=== PATIENT | female | born 1960 | race African-American/Black ===

== ENCOUNTER 2024-06-29 08:08 | Emergency (ER) | payer MEDICARE, BC ==
[~2024-06-29] VITALS: Ht 167.6 cm; Wt 100.0 kg
[2024-06-29 08:16] VITALS: O2SAT 99
[2024-06-29] MEDS ORDERED: IBUP-2029 MT (09:07)
[2024-06-29 09:36] VITALS: BP 160/90; PULSE 53; RESP 16; TEMP 36.78072; O2SAT 99
== END 2024-06-29 09:39 | disposition home or self-care (01) ==
LOC: ER 08:08
DX: S62.511A Displaced fracture of proximal phalanx of right thumb, initial encounter for closed fracture (principal); I10 Essential (primary) hypertension; Z90.89 Acquired absence of other organs; Z98.890 Other specified postprocedural states; X58.XXXA Exposure to other specified factors, initial encounter; Y93.89 Activity, other specified; Y92.89 Other specified places as the place of occurrence of the external cause; Y99.8 Other external cause status
CPT/HCPCS: 29125; 73130; 99283